=== PATIENT | male | born 1955 | race African-American/Black ===

== ENCOUNTER 2017-10-24 21:31 | Emergency (ER) | payer MEDICAID ==
[~2017-10-24] VITALS: Ht 170.2 cm; Wt 77.1 kg
[~2017-10-24 21:31] MED LIST: AMLODIPINE BESYL5 MG PO; BACTRIM DS TAB1 EAC1 ORAL; CEPHALEXIN125 MG/5 M PO; FUROSEMIDE20 M1 ORAL; LASIX40 MG ORAL; LOVENOX10 MG SUBQ; NEXIUM40 MG ORAL; OMEPRAZOLE20 M2 PO; OMEPRAZOLE40 M1 ORAL; OXYCONTIN20 MG ORAL; SPIRONOLACTONE25 MG PO; VICODIN 5-3001 EACH ORAL; amlodipine; lasix; omeprazole
[2017-10-24 21:35] VITALS: BP 121/85
[2017-10-24 22:16] LABS: APPEARANCE,URINE SLIGHTLY CLOUDY; BILIRUBIN, URINE NEGATIVE (NEGATIVE); GLUCOSE, URINE (UA) NEGATIVE (NEGATIVE); KETONES,URINE NEGATIVE (NEGATIVE); LEUKOCYTE ESTERASE ,URINE 3+ (NEGATIVE); NITRITE,URINE POSITIVE (NEGATIVE); PH,URINE 5 (4.5-8.0); PROTEIN,URINE 2+ (NEGATIVE); UROBILINOGEN,URINE 1 MG/DL (0.0-1.0)
[2017-10-24 22:17] LABS: COLOR,URINE YELLOW
[2017-10-24] MEDS ORDERED: Cephalexin 500mg cap ORAL ONE (22:45)
[2017-10-24 23:30] VITALS: BP 122/74
[2017-10-25 01:00] VITALS: BP 116/74
[2017-10-25] MEDS ORDERED: CEPHALEXIN500 MG ORAL (02:36)
--- NOTE | 2017-10-25 02:37 | Emergency Room Report ---
History of Present Illness General Chief Complaint: Alcohol Intoxication Source: Patient, Medical Record, EMS Present Illness HPI Is a 62-year-old male with a history of urinary retention with chronic Boone. Also history of alcohol abuse. He presents with chief complaint of alcohol intoxication. Someone called 911 because of his alcohol intoxication. He also complaining of pain to his Boone. He was at [facility] to 3 days ago and had a Boone placed. Denies any fever chills. Pain is 10 out of 10. Worse with urination. No other complaint. Admits to drinking heavily tonight. Denies drug use Allergies: Coded Allergies: PENICILLINS (Verified Allergy, Severe, rash, 10/16/12) Patient History Past Medical History: see triage record, old chart reviewed Past Surgical History: other Pertinent Family History: none Social History: Denies: smoking Immunizations: other Reviewed Nursing Documentation: PMH: Agreed; PSxH: Agreed Nursing Documentation-PM Past Medical History: No History, Except For Hx Hypertension: Yes Hx COPD: Yes Hx Cancer: No Hx Neurological Problems: No Hx Seizures: Yes Hx Dizziness: Yes Review of Systems Eye: Denies: eye pain, blurred vision ENT: Denies: ear pain, nose congestion, throat swelling Respiratory: Denies: cough, shortness of breath Cardiovascular: Denies: chest pain, palpitations Gastrointestinal: Denies: abdominal pain, diarrhea, nausea, vomiting Genitourinary: Reports: dysuria Musculoskeletal: Denies: back pain, joint pain Skin: Denies: rash Neurological: Denies: headache, numbness Endocrine: Denies: increased thirst, increased urine Hematologic/Lymphatic: Denies: easy bruising All Other Systems: negative except mentioned in HPI Physical Exam Vital Signs Date Time Temp Pulse Resp B/P (MAP) Pulse Ox O2 Delivery O2 Flow Rate FiO2 10/24/17 21:25 98.1 100 20 121/85 97 Room Air 98.1 vitals normal Sp02 EP Interpretation: reviewed, normal General Appearance: well appearing, no apparent distress, alert, other - disheveled Head: normocephalic, atraumatic Eyes: bilateral eye PERRL, bilateral eye EOMI ENT: hearing grossly normal, normal pharynx Neck: full range of motion, supple, no meningismus Respiratory: chest non-tender, lungs clear, normal breath sounds Cardiovascular #1: regular rate, rhythm, no murmur Gastrointestinal: normal bowel sounds, non tender, no mass, no organomegaly, no bruit, non-distended Genitourinary: other - Boone with dark urine Musculoskeletal: back normal, normal range of motion Neurologic: normal inspection, alert, oriented x3 Psychiatric: mood/affect normal Skin: warm/dry Medical Decision Making Diagnostic Impression: Primary Impression: Acute alcoholic intoxication Qualified Codes: F10.929 - Alcohol use, unspecified with intoxication, unspecified Additional Impression: UTI (urinary tract infection) Qualified Codes: N30.00 - Acute cystitis without hematuria ER Course Patient with alcohol intoxication. He slept comfortably. Pain is better after a new Boone was placed. Does show evidence of infection. Antibiotics given here. Last Vital Signs Date Time Temp Pulse Resp B/P (MAP) Pulse Ox O2 Delivery O2 Flow Rate FiO2 10/24/17 21:35 98.1 20 121/85 97 Room Air 98.1 10/24/17 21:25 100 Status: improved Disposition: HOME, SELF-CARE Condition: Stable Scripts Cephalexin* (KEFLEX*) 500 Mg Capsule 500 MG ORAL TID, #21 CAP Prov: AVE SANDS M.D. 10/25/17 Referrals: NOT CHOSEN IPA/,REFERRING (PCP) Patient Instructions: Alcohol Intoxication, [id number] Additional Instructions: Stop drinking alcohol to excess. Follow-up with your doctor in 7 days. Return if worse. AVE SANDS M.D. Oct 25, 2017 02:37
[2017-10-25 03:34] VITALS: BP 118/80
[2017-10-25 05:32] VITALS: BP 122/74
[2017-10-25] MEDS ORDERED: Lidocaine 1% MPF 10mg/ml 5ml INJ ONE (08:45)
[2017-10-25] MEDS ORDERED: Ketorolac 60mg Inj IM ONE (08:45)
[2017-10-25] MEDS ORDERED: Cephalexin 500mg cap ORAL SCH (09:00)
[2017-10-25 09:41] VITALS: BP 144/66
== END 2017-10-25 09:41 | disposition home or self-care (01) ==
LOC: EDBD 21:31 → EMR 23:08
DX: F10.129 Alcohol abuse with intoxication, unspecified (principal); N39.0 Urinary tract infection, site not specified; J44.9 Chronic obstructive pulmonary disease, unspecified; I10 Essential (primary) hypertension
CPT/HCPCS: 81003; 87086; 87181; 96372; 99283; J0696